=== PATIENT | male | born 1950 | race Caucasian/White ===

== ENCOUNTER 2018-07-22 00:42 | Inpatient (IN) | payer OTHER ==
[~2018-07-22] VITALS: Ht 142.2 cm; Wt 68.9 kg
[~2018-07-22 00:42] MED LIST: TAMS-11 PO
[2018-07-22] MEDS ORDERED: ACETAMINOPHEN 325MG TABLET PO STA (01:05)
[2018-07-22] MEDS ORDERED: SODIUM CHLORIDE 0.9% 1000ML BAG (SEPSIS BOLUS) IV ONE (01:15)
[2018-07-22] MEDS ORDERED: AZITHROMYCIN 500 MG in DEXT 5% WATER 250 ML IV ONE (01:15)
[2018-07-22] MEDS ORDERED: CEFTRIAXONE 1 G PREMIX 50 ML IV ONE (01:15)
[2018-07-22 02:04] LABS: CHLORIDE 105 mEq/L (98-107); HEMATOCRIT. 37.9 % (42.0-52.0); HEMOGLOBIN. 13.2 g/dL (14.0-18.0); MEAN CORPUSCULAR HEMOGLOBIN 30.9 pg (28.0-32.0); MEAN CORPUSCULAR VOLUME 88.9 fL (80.0-94.0); MEAN PLATELET VOLUME 8.7 fl (7.4-10.4); PLATELET 191 x1000/uL (130-400); RED BLOOD CELL COUNT 4.26 mill/uL (4.7-6.1)
[2018-07-22 02:07] LABS: CLARITY URINE CLOUDY (CLEAR); COLOR URINE DARK YELLOW (YELLOW); KETONES URINE TRACE (NEGATIVE); LEUKOCYTE ESTERASE URINE 3+ (NEGATIVE); NITRITE URINE NEGATIVE (NEGATIVE); OCCULT BLOOD URINE 1+ (NEGATIVE); PH URINE 5.5 (4.5-8.0); PROTEIN URINE 1+ (NEGATIVE); SPECIFIC GRAVITY URINE 1.019 (1.005-1.030)
[2018-07-22 02:33] LABS: PLATELET ESTIMATE NORMAL
[2018-07-22] MEDS ORDERED: SODIUM CHLORIDE 0.9% 1,000 ML IV SCH (05:35)
[2018-07-22 14:00] VITALS: BP 119/71
[2018-07-22 15:26] VITALS: BP 104/74
[2018-07-22] MEDS ORDERED: CEFTRIAXONE 1 G PREMIX 50 ML IV SCH ×2 (15:45→23:00)
[2018-07-22] MEDS ORDERED: IPRATROPIUM/ALBUTEROL 0.5-3(2.5)MG/3ML NEB INH PRN (15:45)
[2018-07-22] MEDS ORDERED: CLONIDINE 0.1MG TABLET PO PRN (15:45)
[2018-07-22] MEDS ORDERED: ONDANSETRON HCL 4MG/2ML INJ IV PRN (15:45)
[2018-07-22] MEDS ORDERED: HYDROCODONE/ACETAMINOPHEN 5/325MG TABLET PO PRN (15:45)
[2018-07-22] MEDS ORDERED: ACETAMINOPHEN 325MG TABLET PO PRN (15:45)
[2018-07-22 16:00] VITALS: BP 104/74
[2018-07-22] MEDS ORDERED: [UNRECOGNIZED DRUG - REMARK] XX SCH (16:00)
[2018-07-22] MEDS ORDERED: ACET-2178 MT (17:03)
[2018-07-22] MEDS: SODIUM CHLORIDE 0.45% 1,000 ML IV SCH (17:19)
[2018-07-22] MEDS: ENOXAPARIN 40MG/0.4ML SYR SUBCUT SCH (17:20)
[2018-07-22 20:00] VITALS: BP 125/82
[2018-07-23] VITALS: BP 108/52
[2018-07-23 04:00] VITALS: BP 140/89
[2018-07-23 06:49] LABS: BASOPHILS % 0.3 % (0.0-2.0); HEMATOCRIT. 35.9 % (42.0-52.0); HEMOGLOBIN. 12.3 g/dL (14.0-18.0); LYMPHOCYTES % 15.6 % (20.0-50.0); MEAN CORPUSCULAR HEMOGLOBIN 30.6 pg (28.0-32.0); MEAN PLATELET VOLUME 8.7 fl (7.4-10.4); MONOCYTES % 7.7 % (2.0-8.0); NEUTROPHILS % 75.4 % (40.0-76.0); PLATELET 162 x1000/uL (130-400); RED BLOOD CELL COUNT 4.03 mill/uL (4.7-6.1); RED CELL DISTRIBUTION WIDTH 14.4 % (11.6-14.6)
[2018-07-23 07:37] LABS: CHLORIDE 108 mEq/L (98-107)
[2018-07-23 07:47] LABS: HDL CHOLESTEROL 40 mg/dL (40-59); LDL CHOLESTEROL 66 mg/dL (5-100); T4 FREE 1.08 ng/dL (0.76-1.46)
[2018-07-23 08:00] VITALS: BP 142/86
[2018-07-23 12:00] VITALS: BP 122/78
[2018-07-23] MEDS: SODIUM CHLORIDE 0.45% 1,000 ML IV SCH (12:05)
[2018-07-23 16:00] VITALS: BP 128/87
[2018-07-23] MEDS: ENOXAPARIN 40MG/0.4ML SYR SUBCUT SCH (16:20)
[2018-07-23 18:35] VITALS: BP 128/87
== END 2018-07-23 19:18 | disposition home or self-care (01) | DRG 872 ==
LOC: ER 00:42 → 7WST 05:36 → EDBEDREQ 05:40 → EDBEDREQTM 05:40 → ENRESERV 12:54
PROVIDERS: ADMIT Internal Medicine; ATTEND Internal Medicine
DX: A41.50 Gram-negative sepsis, unspecified (principal); N12 Tubulo-interstitial nephritis, not specified as acute or chronic; D64.9 Anemia, unspecified; E78.00 Pure hypercholesterolemia, unspecified; E86.0 Dehydration; I10 Essential (primary) hypertension; N40.1 Benign prostatic hyperplasia with lower urinary tract symptoms; N13.9 Obstructive and reflux uropathy, unspecified; R31.9 Hematuria, unspecified; R33.9 Retention of urine, unspecified; Z90.49 Acquired absence of other specified parts of digestive tract; Z85.118 Personal history of other malignant neoplasm of bronchus and lung; Z79.899 Other long term (current) drug therapy
CPT/HCPCS: 36415; 71045; 74176; 80061; 83036; 83605; 84145; 84153; 84439; 84443; 87077; 87186; 93005; 96365; 96366; 96367; 99291; J0456; J0696; J1650; J7030; J7060; A4315; G0103

== ENCOUNTER 2023-08-16 18:20 | Emergency (ER) | payer MEDICARE, MEDICAID ==
[~2023-08-16] VITALS: Ht 167.6 cm; Wt 68.0 kg
[~2023-08-16 18:20] MED LIST changes: +TOPUD MT
[2023-08-16 18:35] VITALS: O2SAT 98
[2023-08-16] MEDS ORDERED: KETOROLAC 15MG/ML VIAL IM ONE (19:30)
[2023-08-16] MEDS ORDERED: NAPR-1176 MT (20:47)
[2023-08-16] MEDS ORDERED: LIDO700A15 TP (20:47)
[2023-08-16] MEDS ORDERED: KETOROLAC 15MG/ML VIAL IM NR (21:00)
[2023-08-16 21:10] VITALS: BP 159/89
[2023-08-16 21:45] VITALS: PULSE 81; RESP 20; TEMP 98.5
== END 2023-08-16 21:46 | disposition home or self-care (01) ==
LOC: ER 18:20
DX: M25.551 Pain in right hip (principal); E78.00 Pure hypercholesterolemia, unspecified; I10 Essential (primary) hypertension; N40.0 Benign prostatic hyperplasia without lower urinary tract symptoms; Z90.49 Acquired absence of other specified parts of digestive tract
CPT/HCPCS: 99283; 73502; 96372; J1885